=== PATIENT | female | born 1960 | race Caucasian/White ===

== ENCOUNTER 2017-09-24 09:30 | Day surgery (SDC) | payer OTHER ==
[~2017-09-24] VITALS: Ht 157.5 cm; Wt 63.5 kg
[~2017-09-24 09:30] MED LIST: ACET325; Carvedilol12.5 MG PO; PRAV20 PO; WARF5 PO
[2017-09-24 11:13] LABS: International Normalized Ratio 1.05; Prothrombin Time Results 10.8 Sec (9.7-11.5)
[2017-09-24 11:16] LABS: Alanine Aminotransfer (ALT/SGP 22 U/L (12-78); Albumin, Blood 4.1 g/dL (3.4-5.0); Albumin/Globulin Ratio 0.9 (0.8-1.8); Alk Phos 68 U/L (50-136); Anion Gap 7 mmol/L (6-16); Aspartate Aminotrans (AST/SGOT 21 U/L (12-37); Bilirubin, Total 0.6 mg/dL (0.1-1.0); Blood Urea Nitrogen 13 mg/dL (8-24); CO2, Blood 27 mmol/L (21-32); Calcium, Blood 9.2 mg/dL (8.5-10.1); Chloride, Blood 110 mmol/L (98-108); Creatinine, Blood 0.72 mg/dL (0.40-1.00); Globulin, Blood 4.5 g/dL (2.2-4.0); Glomerular Filtration Rate >60 (60-); Glucose, Blood 101 mg/dL (70-99); Potassium, Blood 4.2 mmol/L (3.5-5.5); Sodium, Blood 144 mmol/L (136-145); Total Protein, Blood 8.6 g/dL (6.4-8.2)
== END 2017-09-24 15:54 | disposition home or self-care (01) ==
LOC: ORSCMMR 09:30 → ORSCSDS 09:30 → ORSCMMR 09:31 → ORSCSDS 11:00 → ORSCMMR 15:54
PROVIDERS: Obstetrics & Gynecology
PROC: 0UT74ZZ Resection of Bilateral Fallopian Tubes, Percutaneous Endoscopic Approach (ICD-10-PCS; principal; 2017-09-24 11:00)
PROC: 0UT24ZZ Resection of Bilateral Ovaries, Percutaneous Endoscopic Approach (ICD-10-PCS; principal; 2017-09-24 11:00)
DX: N83.292 Other ovarian cyst, left side (principal); Z01.812 Encounter for preprocedural laboratory examination; Z01.818 Encounter for other preprocedural examination; K66.0 Peritoneal adhesions (postprocedural) (postinfection); I10 Essential (primary) hypertension; I48.92 Unspecified atrial flutter; Z79.01 Long term (current) use of anticoagulants; Z86.73 Personal history of transient ischemic attack (TIA), and cerebral infarction without residual deficits
CPT/HCPCS: 80053; 85610; 85730; 88305; C1729; J1100; J1885; J2250; J2370; J2405; J2710; J3010; J7120

== ENCOUNTER → 2017-10-22 | Outpatient (CLI) | payer OTHER ==
[2017-10-22 15:47] LABS: Source, Urine Clean Catch
[2017-10-22 18:07] LABS: Appearance, Urine Cloudy (Clear); Blood, Urine 5+ (Neg); Color, Urine Yellow (P-Yellow); Glucose Qualitative, Urine Neg (Neg); Ketones, Urine 2+ (Neg); Leukocyte Esterase, Urine 2+ (Neg); Nitrite, Urine Neg (Neg); Protein, Urine 2+ (Neg); Specific Gravity, Urine 1.025 (1.003-1.022); Urobilinogen, Urine 1+ (Normal)
[2017-10-22 18:41] LABS: Bilirubin, Urine 1+ (Neg)
[2017-10-22 18:42] LABS: Amorphous Heavy (0-Heavy); Bacteria Few /hpf; Red Blood Cells, Urine 0-2 /hpf (0-2); Squamous Epithelial Cells Not Seen /hpf (Few)
== END | disposition home or self-care (01) ==
LOC: LAB SHORT 15:43 → LAB 15:43
PROVIDERS: Obstetrics & Gynecology
DX: R82.99 Other abnormal findings in urine (principal)
CPT/HCPCS: 81001; 87086